=== PATIENT | male | born 1995 | race Caucasian/White ===

== ENCOUNTER 2025-03-04 18:15 | Emergency (ER) | payer OTHER ==
[~2025-03-04] VITALS: Ht 177.8 cm; Wt 114.0 kg
[2025-03-04 18:17] VITALS: O2SAT 98
[2025-03-04] MEDS ORDERED: IBUP-1455 MT (19:14)
[2025-03-04 19:32] VITALS: TEMP 36.8; O2SAT 99
[2025-03-04 19:36] VITALS: BP 160/91; PULSE 94; RESP 18
[2025-03-04] MEDS: IBUPROFEN 600MG TABLET PO ONE (19:36)
== END 2025-03-04 19:39 ==
LOC: ER 18:15
DX: M54.9 Dorsalgia, unspecified (principal); R03.0 Elevated blood-pressure reading, without diagnosis of hypertension
CPT/HCPCS: 72100; 72170; 99284